=== PATIENT | male | born 1945 | race Caucasian/White ===

== ENCOUNTER → 2016-11-02 | Outpatient (CLI) | payer BC, MEDICARE ==
[~2016-11-02] MED LIST: ALLERGY10 MG PO; ASPIRIN325 MG PO; AUGMENTIN 875-1 EACH PO; BACTRIM 400 MG-1 TAB PO; CEPHALEXIN500 MG PO; DICLOFENAC 50MG50 MG PO; DILTIAZEM ER 2240 MG PO; DILTIAZEM HCL60 MG PO; FLAGYL500 MG PO; HEART BURN MED; LEVAQUIN500 MG PO; LOSARTAN POTASS1 TA1 PO; LOSARTAN POTASS1 TA3 PO; LOSARTAN POTASS1 TA4 PO; LOSARTAN POTASS1 TAB PO; METOCLOPRAMIDE10 M2 PO; METOPROLOL TAR100 MG PO; METOPROLOL25 MG PO; NABUMETONE750 MG OR; NORVASC 5MG. TAB5 MG PO; PERCOCET 5/3251 EACH PO; PREVACID 30MG C30 M1 PO; RELAFEN750 MG OR; VICODIN1 TAB PO; WELCHOL625 MG PO; XARELTO20 MG PO; ZOFRAN4 MG PO
[2016-11-02 13:29] LABS: BUN 21 mg/dL (7-18); GFR (ESTIMATED) 50 ML/MIN (>60)
--- NOTE | 2016-11-02 15:26 | RADIOLOGY REPORT PS360 ---
CT ABD W/ CONTRAST CLINICAL INDICATION: RUQ PAIN ORDERING PHYSICIAN: Grady Odom MD PATIENT AGE: 71 years COMPARISON: 01/29/2016 TECHNIQUE: Axial images are obtained following the intravenous administration of 75 mL's of Isovue-370. 3 phase imaging is performed following contrast administration. FINDINGS: There is moderate sized hiatal hernia. There has been prior cholecystectomy. No biliary dilatation. No focal liver lesion. The spleen, adrenal glands, and pancreas has an unremarkable appearance. There is a small duodenal diverticulum projecting along descending portion of the duodenum medially. No renal mass or obstructing renal or ureteral calculus. No evidence of aortic aneurysm or retroperitoneal mass. There is diverticulosis of the descending colon. There is a small umbilical hernia containing fat. IMPRESSION: 1. Hiatal hernia and small umbilical hernia. 2. Prior cholecystectomy. 3. Otherwise negative CT abdomen with contrast
== END ==
LOC: RAD 10-31 14:30
PROVIDERS: Family Medicine
DX: R10.11 Right upper quadrant pain (principal)
CPT/HCPCS: Q9967